=== PATIENT | female | born 1940 | race Caucasian/White ===

== ENCOUNTER 2024-04-23 00:29 | Observation (INO) ==
[2024-04-23 01:11] LABS: Basophils # (auto) 0.05 K/uL (0.00-0.20); Basophils % (auto) 0.5 %; Eosinophils # (auto) 0.02 K/uL (0.00-0.50); Eosinophils % (auto) 0.2 %; Hematocrit (blood only) 44.4 % (37.0-47.0); Hemoglobin 14.5 g/dl (12.0-16.0); Immature Granulocytes # (auto) 0.04 K/uL (0.01-0.20); Immature Granulocytes % (auto) 0.4 %; Lymphocytes # (auto) 1.62 K/uL (1.20-3.40); Lymphocytes % (auto) 16.2 %; Mean Corpuscular Hemoglobin 27.5 pg (25.0-34.0); Mean Corpuscular Hgb Conc 32.7 g/dL (32.0-36.0); Mean Corpuscular Volume 84.3 fL (80.0-100.0); Mean Platelet Volume 9.4 fL (9.4-12.4); Monocytes # (auto) 0.92 K/uL (0.11-0.59); Monocytes % (auto) 9.2 %; Neutrophils # (auto) 7.33 K/uL (1.40-6.50); Neutrophils % (auto) 73.5 %; Platelet Count 196 K/uL (130-400); RDW Coefficient of Variation 13.6 % (11.5-14.5); RDW Standard Deviation 41.9 fL (36.4-46.3); Red Blood Count 5.27 M/uL (4.20-5.40); White Blood Count 9.98 K/ul (4.8-10.8)
[2024-04-23 01:29] LABS: Albumin Globulin Ratio 1.4 (0.9-2); BUN Creatinine Ratio 29.6 (10-20); Bilirubin,Total 0.8 mg/dl (0.2-1.0); Calcium 9.4 mg/dl (8.6-10.3); Creatinine Clr Calc Pharmacy 63.9 ml/min; Globulin 2.8 gm/dl (2.5-4.0); Potassium 3.4 mmol/L (3.5-5.1); Total Protein 6.8 gm/dl (6.0-8.3)
[2024-04-23 01:35] LABS: Troponin I High Sensitivity 7.6 pg/ml (0-14)
[2024-04-23] MEDS: OPTIRAY 320 125ml IV ONE (03:00)
--- NOTE | 2024-04-23 04:30 | CT Scan Report ---
Exam(s): CTA CHEST IV Amt: 94 ml EXAM: CT Angiography Chest With Intravenous Contrast CLINICAL HISTORY: Reason for exam: PE. TECHNIQUE: Axial computed tomographic angiography images of the chest with intravenous contrast. CTDI is 40 mGy and DLP is 847.16 mGy-cm. Automated exposure control was utilized for the study. A dose lowering technique was utilized adhering to the principles of ALARA. MIP reconstructed images were created and reviewed. COMPARISON: No relevant prior studies available. FINDINGS: Pulmonary arteries: Unremarkable. No pulmonary embolism. Aorta: No acute findings. No thoracic aortic aneurysm. Lungs: Unremarkable. No mass. No consolidation. Pleural space: Unremarkable. No significant effusion. No pneumothorax. Heart: Unremarkable. No cardiomegaly. No significant pericardial effusion. No evidence of RV dysfunction. Bones/joints: No acute fracture. No dislocation. Soft tissues: Unremarkable. Lymph nodes: Unremarkable. No enlarged lymph nodes. Adrenals: 2 cm left adrenal nodule with small calcifications. Some of the nodule shows Hounsfield units below 10 and this is likely an adenoma. This does not require follow-up. IMPRESSION: No evidence of pulmonary emboli or acute cardiopulmonary process.. Electronically signed by: Kishan Stahl MD 04/23/24 04:28 AM
--- NOTE | 2024-04-23 05:53 | Emergency Department Note ---
Impression & Plan Chest pain, Acute dyspnea admit to the [facility] ED Provider Note NAME: PAUL PARMAR AGE: 84 SEX: Female INFORMANT: Patient ED PROVIDER(S): Radha Laura DO CHIEF COMPLAINT: Chest pain, shortness of breath, nausea/vomiting/diarrhea PLAN: Disposition: admit to the [facility] MEDICAL DECISION MAKING: this is an 84-year-old female patient who is visiting the area from [place], [place]. Patient had developed some diarrhea earlier this afternoon and then became nauseated. She then noted some labored breathing and some discomfort and pressure along the lateral aspects of her rib cage. She states that it hurts when she inhales and exhales. Patient also describes intermittent episodes of chest pressure associated with pallor. Laboratory studies revealed no leukocytosis or anemia. BUN was elevated at 24 with a creatinine of 0.8 consistent with evidence of dehydration. Glucose was elevated to 166. Troponin was negative. Patient does have an history of DVT in the past and therefore she was sent for a PE study. This was negative. EKG was unremarkable. I remain concerned about the events that occurred this evening with the patient's chest discomfort, episode of labored breathing and pale skin color. I discussed case with the [facility] Divisionist and they will evaluate the patient for further inpatient care and to rule out cardiac event. Care/management discussed with: manager nursing and [facility] Triage Nursing notes: reviewed and agree with them. Vital Signs: reviewed and unremarkable Additional History obtained from: Patient's family is at the bedside Prior/ Outside/ External records reviewed: I did obtain records from the [facility] system in [place], [place] when the patient underwent a knee replacement as well as when she was admitted for pneumonia Differential Diagnosis: pneumonia PE, STEMI, NSTEMI, cardiac dysrhythmia Diagnostics, independently interpreted by me: ECG: Normal sinus rhythm at a rate of [address] segment depression in leads I and aVL. This was compared to an EKG from 2022 in the [facility] system and was unchanged. Cardiac Monitoring: Normal sinus rhythm at a rate of 80 Imaging studies: portable chest x-ray: As per my independent interpretation no acute pulmonary infiltrates or consolidations. There were no opacities CT scan of the chest: As per stat rad HPI: 84 year old Female arrives for evaluation of Chest pain shortness of breath. patient describes having diarrhea earlier in the day and becoming nauseated later today. patient had an developed some pressure as she describes it in both sides of her rib cage. She then became short of breath and pale according to her family. She now describes discomfort with both inhalation and exhalation. She she became more concerned with the chest pain and shortness of breath and woke up her family to bring her here to the hospital. PAST MEDICAL HISTORY: adrenal gland insufficiency, hypertension, hypercholesterolemia, DVT, GERD, glaucoma, traumatic pneumothorax, vertigo, ocular migraine PAST SURGICAL HISTORY: right knee replacement, left hip replacement, hysterectomy SOCIAL HISTORY: Patient lives in [place], [place] and was visiting the area with her family. She does not smoke. HOME MEDICATIONS: Amlodipine, valsartan, Lipitor, Lasix, meloxicam, Nexium, aspirin, calcium ALLERGIES: Coumadin, morphine VITALS: See Below PHYSICAL EXAMINATION: HEENT: Head - normocephalic and atraumatic Pupils are equal, round, and reactive to light. Extraocular eye muscles are intact, and sclera are anicteric. Nose - moist nasal mucosa without discharge. Mouth - moist buccal mucosa. Oropharynx is nonerythematous and there is no tonsillar exudate or edema noted. Neck: Supple; no JVD, nuchal rigidity, cervical lymphadenopathy, or auscultated bruits. Heart: Regular rate and rhythm. There is a normal S1 and S2 with no murmurs, clicks, or gallops appreciated. Lungs: Clear to auscultation bilaterally with no wheezes, rales, or rhonchi. Abdomen: Soft, completely nontender, nondistended, with good bowel sounds. There are no palpable pulsatile masses or hepatosplenomegaly. There is no guarding, rigidity, or rebound noted. Extremities: No evidence of cyanosis, clubbing, or edema. There are easily palpable peripheral pulses. Skin: warm and dry with good turgor and no rashes. Emergency department course: The patient was evaluated in room C-10. A complete history and physical was performed. IV lock was initiated labs were drawn as above. Twelve-lead EKG was obtained as described above. Order was placed for continuous cardiac monitoring. The patient was in a normal sinus rhythm at a rate of 80. Portable chest x-ray was performed as described above. Patient went for CT scan of the chest to rule out PE. I discussed the case with the [facility] Hospitalist and they will evaluate for further inpatient care. Past Med/Surg History Problem List (Updated 04/23/24 @ 06:42 by Alex Maharaj MD) Nausea, vomiting and diarrhea Hyperglycemia GERD without esophagitis Adrenal nodule Presence of IVC filter History of deep vein thrombosis of lower extremity Hyperlipidemia Hypertension Acute dyspnea (Acute) Chest pain (Acute) Medical History (Updated 04/23/24 @ 06:42 by Alex Maharaj MD) Adverse effect of warfarin Full dentures History of pneumonia Acute adrenal insufficiency Glaucoma Vertigo Surgical History (Updated 04/23/24 @ 06:42 by Alex Maharaj MD) History of total left knee replacement (TKR) History of total right knee replacement (TKR) History of total left hip arthroplasty Social History Smoking Status: Never smoker Hx Alcohol Use: No Hx Substance Use: No Preferred Language: Frisian Beliefs That Will Affect Care: None Current Living Situation: Family Feels Safe at Home: Yes Assistive Devices: Cane, Denture - Upper, Denture - Lower and Hearing Aid - Bilateral Allergies Allergies Allergy/AdvReac Type Severity Reaction Status Date / Time morphine AdvReac Nausea Verified 04/23/24 06:47 warfarin [From Coumadin] AdvReac Gastrointestinal Verified 04/23/24 06:47 Upset Home Meds Home Medications Medication Instructions Recorded Confirmed Calcium + D 04/23/24 Lactobacills gasseri-Bifidobac 1 cap PO DAILY 04/23/24 04/23/24 bifidum,longum 1.5 billion cell capsule acetaminophen 650 mg tablet 650 mg PO Q6H PRN Pain 04/23/24 04/23/24 amlodipine 5 mg tablet 5 mg DAILY 04/23/24 04/23/24 aspirin 81 mg tablet 81 mg PO DAILY 04/23/24 04/23/24 atorvastatin 20 mg tablet 20 mg HS 04/23/24 04/23/24 benzonatate 100 mg capsule 100 mg PO TID PRN Cough 04/23/24 04/23/24 cetirizine 10 mg tablet 10 mg PO DAILY PRN Allergy Symptoms 04/23/24 04/23/24 cranberry extract 500 mg capsule 500 mg DAILY 04/23/24 04/23/24 (Cranberry Concentrate) cyclobenzaprine 7.5 mg tablet 7.5 mg DAILY PRN Muscle Spasm 04/23/24 04/23/24 dimenhydrinate 50 mg tablet 50 mg DAILY PRN Motion Sickness 04/23/24 04/23/24 (Dramamine) esomeprazole sodium 40 mg 40 mg DAILY 04/23/24 04/23/24 intravenous solution furosemide 20 mg tablet 20 mg DAILY 04/23/24 04/23/24 meclizine 12.5 mg tablet 12.5 mg PO QID PRN Dizziness 04/23/24 04/23/24 meloxicam 7.5 mg tablet 7.5 mg DAILY 04/23/24 04/23/24 nitrofurantoin macrocrystal 50 mg 50 mg HS 04/23/24 04/23/24 capsule travoprost 0.004 % eye drops 1 drp HS 04/23/24 04/23/24 valsartan 160 mg tablet 160 mg DAILY 04/23/24 04/23/24 Results & Data (ED) Vital Signs Vital Signs - 24 hr 04/23/24 00:12 04/23/24 00:12 04/23/24 00:47 Pulse Rate 75 Pulse Rate from SpO2 Sensor Pulse Rhythm Pulse Strength Respiratory Rate Respiratory Effort / Characteristics Spontaneous Respiratory Depth Shallow Respiratory Pattern Blood Pressure Blood Pressure Mean Blood Pressure Position Pulse Oximetry Oxygen Delivery Method Room Air Sepsis Recent Fever Within 48 Hours Sepsis New/Unexplained Change in Mental Status Sepsis Action Taken by Nursing 04/23/24 00:48 04/23/24 00:58 04/23/24 01:02 Pulse Rate 73 73 Pulse Rate from SpO2 Sensor 73 Pulse Rhythm Regular Pulse Strength Normal Respiratory Rate 18 22 Respiratory Effort / Characteristics Non-Labored Spontaneous Respiratory Depth Normal Respiratory Pattern Regular Blood Pressure 131/68 112/63 Blood Pressure Mean 89 79 Blood Pressure Position Sitting Pulse Oximetry 95 92 92 Oxygen Delivery Method Room Air Room Air Sepsis Recent Fever Within 48 Hours No Sepsis New/Unexplained Change in Mental Status N/A Sepsis Action Taken by Nursing No Action Required 04/23/24 01:03 04/23/24 01:15 04/23/24 01:27 Pulse Rate 74 72 Pulse Rate from SpO2 Sensor 73 Pulse Rhythm Pulse Strength Respiratory Rate 20 16 Respiratory Effort / Characteristics Respiratory Depth Respiratory Pattern Blood Pressure 112/63 150/71 H 135/84 Blood Pressure Mean 79 108 101 Blood Pressure Position Pulse Oximetry 93 Oxygen Delivery Method Sepsis Recent Fever Within 48 Hours Sepsis New/Unexplained Change in Mental Status Sepsis Action Taken by Nursing 04/23/24 01:42 04/23/24 02:00 04/23/24 02:00 Pulse Rate 76 73 Pulse Rate from SpO2 Sensor 76 73 Pulse Rhythm Pulse Strength Respiratory Rate 17 12 Respiratory Effort / Characteristics Respiratory Depth Respiratory Pattern Blood Pressure 125/85 128/65 128/65 Blood Pressure Mean 98 86 79 Blood Pressure Position Pulse Oximetry 92 93 Oxygen Delivery Method Sepsis Recent Fever Within 48 Hours Sepsis New/Unexplained Change in Mental Status Sepsis Action Taken by Nursing 04/23/24 02:12 04/23/24 02:30 04/23/24 03:18 Pulse Rate 73 70 77 Pulse Rate from SpO2 Sensor 73 72 77 Pulse Rhythm Pulse Strength Respiratory Rate 17 19 20 Respiratory Effort / Characteristics Respiratory Depth Respiratory Pattern Blood Pressure 128/85 143/73 H 141/63 H Blood Pressure Mean 99 96 89 Blood Pressure Position Pulse Oximetry 94 94 97 Oxygen Delivery Method Sepsis Recent Fever Within 48 Hours Sepsis New/Unexplained Change in Mental Status Sepsis Action Taken by Nursing 04/23/24 03:30 04/23/24 03:34 04/23/24 03:48 Pulse Rate 68 68 Pulse Rate from SpO2 Sensor 68 68 Pulse Rhythm Pulse Strength Respiratory Rate 21 21 Respiratory Effort / Characteristics Respiratory Depth Respiratory Pattern Blood Pressure 126/69 154/71 H Blood Pressure Mean 88 98 Blood Pressure Position Pulse Oximetry 95 96 94 Oxygen Delivery Method Room Air Sepsis Recent Fever Within 48 Hours Sepsis New/Unexplained Change in Mental Status Sepsis Action Taken by Nursing 04/23/24 03:57 04/23/24 04:46 Pulse Rate 68 71 Pulse Rate from SpO2 Sensor 67 Pulse Rhythm Pulse Strength Respiratory Rate 19 Respiratory Effort / Characteristics Respiratory Depth Respiratory Pattern Blood Pressure 151/80 H Blood Pressure Mean 103 Blood Pressure Position Pulse Oximetry 94 Oxygen Delivery Method Sepsis Recent Fever Within 48 Hours Sepsis New/Unexplained Change in Mental Status Sepsis Action Taken by Nursing Laboratory Data 04/23/24 00:54 04/23/24 00:54 Lab Results 04/23/24 Range/Units 00:54 WBC 9.98 (4.8-10.8) K/ul RBC 5.27 (4.20-5.40) M/uL Hgb 14.5 (12.0-16.0) g/dl Hct 44.4 (37.0-47.0) % MCV 84.3 (80.0-100.0) fL MCH 27.5 (25.0-34.0) pg MCHC 32.7 (32.0-36.0) g/dL RDW Std Deviation 41.9 (36.4-46.3) fL RDW Coeff of Dorothea 13.6 (11.5-14.5) % Plt Count 196 (130-400) K/uL MPV 9.4 (9.4-12.4) fL Immature Gran % (Auto) 0.4 % Neut % (Auto) 73.5 % Lymph % (Auto) 16.2 % [place] % (Auto) 9.2 % Eos % (Auto) 0.2 % Baso % (Auto) 0.5 % Neut # (Auto) 7.33 H (1.40-6.50) K/uL Lymph # (Auto) 1.62 (1.20-3.40) K/uL [place] # (Auto) 0.92 H (0.11-0.59) K/uL Eos # (Auto) 0.02 (0.00-0.50) K/uL Baso # (Auto) 0.05 (0.00-0.20) K/uL Immature Gran # (Auto) 0.04 (0.01-0.20) K/uL Sodium 139 (136-145) mmol/L Potassium 3.4 L (3.5-5.1) mmol/L Chloride 105 (98-107) mmol/L Carbon Dioxide 22 (21-32) mmol/L Anion Gap 12 H (3-11) BUN 24 H (6-23) mg/dl Creatinine 0.81 (0.6-1.2) mg/dl Est Cr Clr Drug Dosing 63.9 ml/min eGFR 71.98 BUN/Creatinine Ratio 29.6 H (10-20) Glucose 166 H (70-99(Fasting)) mg/dl Estimat Average Glucose 140 mg/dl Hemoglobin A1c 6.5 H (4.5-5.6) % Calcium 9.4 (8.6-10.3) mg/dl Magnesium 1.7 (1.7-2.4) mg/dl Total Bilirubin 0.8 (0.2-1.0) mg/dl AST 41 H (13-39) U/L ALT 23 (7-52) U/L Alkaline Phosphatase 109 H (34-104) U/L Troponin I High Sens 7.6 (0-14) pg/ml Total Protein 6.8 (6.0-8.3) gm/dl Albumin 4.0 (3.4-5.0) gm/dl Globulin 2.8 (2.5-4.0) gm/dl Albumin/Globulin Ratio 1.4 (0.9-2) Triglycerides 150 (0-150) mg/dl Cholesterol 117 (0-200) mg/dl LDL Cholesterol, Calc 46 mg/dl VLDL Cholesterol, Calc 30 (0-30) mg/dl HDL Cholesterol 41 mg/dl Cholesterol/HDL Ratio 2.9 (0-5) Lipase 20 (11-82) U/L Administered Medications Discontinued Medications Amlodipine Besylate (Amlodipine Besylate 5 Mg Tab) 5 mg PO DAILY GILDA Stop: 05/23/24 08:59 Last Admin: 04/23/24 10:03 Dose: 5 mg Documented By: AKAU Aspirin (Aspirin 81 Mg Ectab) 81 mg PO DAILY GILDA Stop: 05/23/24 08:59 Last Admin: 04/23/24 10:03 Dose: 81 mg Documented By: AKUA Pantoprazole Sodium (Protonix) 40 mg in 10 mls @ 5 mls/min IV DAILY GILDA Stop: 05/23/24 08:59 Last Admin: 04/23/24 10:04 Dose: 5 mls/min Documented By: AKUA Insulin Aspart (Insulin Aspart Per Unit Charge) 0 units SC ACHS GILDA Stop: 05/23/24 09:26 Last Admin: 04/23/24 09:56 Dose: Not Given Documented By: AMB Ioversol (Optiray 320 125ml) 94 ml IV ONCE ONE Stop: 04/23/24 03:01 Last Admin: 04/23/24 03:00 Dose: 94 ml Documented By: EDER Imaging Data Radiologist's Impression: Chest X-Ray 04/23/24 01:02 XR chest 1V portable CLINICAL HISTORY: Chest pain, nonspecific TECHNIQUE: Single frontal radiograph of the chest was obtained. Comparison: None available at the time of this dictation. FINDINGS: No lines and tubes are seen. Cardiomegaly is noted. The aortic arch is calcified. The lungs are clear. No evidence of pleural effusion or pneumothorax. IMPRESSION: No acute chest disease. ACT 112: Negative or not required by law. Electronically signed by: Noah Tinoco M.D. 04/23/2024 7:51 AM Chest CTA 04/23/24 02:26 Exam(s): CTA CHEST IV Amt: 94 ml EXAM: CT Angiography Chest With Intravenous Contrast CLINICAL HISTORY: Reason for exam: PE. TECHNIQUE: Axial computed tomographic angiography images of the chest with intravenous contrast. CTDI is 40 mGy and DLP is 847.16 mGy-cm. Automated exposure control was utilized for the study. A dose lowering technique was utilized adhering to the principles of ALARA. MIP reconstructed images were created and reviewed. COMPARISON: No relevant prior studies available. FINDINGS: Pulmonary arteries: Unremarkable. No pulmonary embolism. Aorta: No acute findings. No thoracic aortic aneurysm. Lungs: Unremarkable. No mass. No consolidation. Pleural space: Unremarkable. No significant effusion. No pneumothorax. Heart: Unremarkable. No cardiomegaly. No significant pericardial effusion. No evidence of RV dysfunction. Bones/joints: No acute fracture. No dislocation. Soft tissues: Unremarkable. Lymph nodes: Unremarkable. No enlarged lymph nodes. Adrenals: 2 cm left adrenal nodule with small calcifications. Some of the nodule shows Hounsfield units below 10 and this is likely an adenoma. This does not require follow-up. IMPRESSION: No evidence of pulmonary emboli or acute cardiopulmonary process.. Electronically signed by: Kishan Stahl MD 04/23/24 04:28 AM Discharge Plan Visit Data Chief Complaint: Chest Pain Stated Complaint: Chest Pain, SOB, N/V/D ED Provider: Radha Laura Discharge Problem: Chest pain, Acute dyspnea Patient Disposition: Admitted As Inpatient Discharge Instructions Interventions: ED Discharge Assessment Last Done: 04/23/24 08:31
[2024-04-23 06:11] LABS: Chol HDL Ratio 2.9 (0-5); Magnesium 1.7 mg/dl (1.7-2.4)
--- NOTE | 2024-04-23 06:15 | History & Physical Report ---
Date of Service April 23, 2024 Assessment & Plan (1) Chest pain: (2) Acute dyspnea: (3) Nausea, vomiting and diarrhea: (4) Hyperlipidemia: (5) Hypertension: (6) History of deep vein thrombosis of lower extremity: (7) Presence of IVC filter: (8) GERD without esophagitis: (9) Hyperglycemia: Plan Bilateral lower chest pain/acute dyspnea/nausea, vomiting and diarrhea- Patient developed the symptoms shortly after ingesting an orange crush drink, with no one else with similar symptoms She had recently traveled from [facility], and there was concern initially regarding PE. Patient does have a history of IVC filter placement secondary to history of DVT, and CTA PE protocol was negative for PE or infection. Patient had had right lower lobe CAP in December 2022 Additional risk factors included tension, hyperlipidemia, obesity. Initial troponin is negative at 7.6, and EKG was unchanged compared to previous from [facility] in [facility]. The patient will be admitted to telemetry for serial cardiac enzymes, serial EKG's, cardiac rhythm monitoring and a 2-D echocardiogram with Dopplers. Continue amlodipine 5 mg daily, aspirin 81 mg daily Hold for losartan and furosemide for now Nausea, vomiting and diarrhea/GERD without esophagitis- Concerns including but not limited to: Gallbladder disease, ileus, gastritis, esophagitis, gastric ulcer, duodenal ulcer, duodenitis, food poisoning, others Liver tests are normal, however, CT of abdomen and pelvis is being ordered to lucie jrery assess Place on pantoprazole 40 mg IV daily Hyperglycemia associated with diabetes mellitus type 2- Patient chart review shows hemoglobin A1c of 6.5 past 2 years Glucose [address] on Accu-Cheks with NovoLog SSI Check hemoglobin A1c Hyperlipidemia- Continue atorvastatin, check a fasting lipid panel Adverse drug reactions: While on warfarin status post right TKA in 2004, patient had adrenal hemorrhage, leading to acute adrenal insufficiency, but has not required stress dosing While on Xarelto in December 2023, status post left TKA, patient had a significant hematoma Patient continues on aspirin 81 mg daily as primary antiplatelet treatment, and should have avoidance of anticoagulants Patient has history of IVC filter placement History of Present Illness Chief Complaint: The patient presents to the emergency department plaint of acute onset of bilateral lower rib cage pain, nausea, vomiting, and a single diarrheal episode. Primary Care Provider: NO PCP The patient is a 84-year-old female with a past medical history including hypertension, hyperlipidemia, GERD without esophagitis, hyperglycemia, DVT right lower extremity status post right TKA, IVC filter placement, glaucoma, acute adrenal insufficiency secondary to hemorrhaging while on warfarin, ocular migraine, and vertigo. She traveled from [facility] to [facility] yesterday, was at a camp with her family, and began to develop symptoms as noted. She was brought to the emergency department by EMS, and underwent workup including laboratories chest x-ray and CT angiography PE protocol. Allergies Allergy/AdvReac Type Severity Reaction Status Date / Time morphine AdvReac Nausea Verified 04/23/24 06:47 warfarin [From Coumadin] AdvReac Gastrointestinal Verified 04/23/24 06:47 Upset Home Medications Medication Instructions Recorded Confirmed Type Calcium + D 04/23/24 History Lactobacills gasseri-Bifidobac 1 cap PO DAILY 04/23/24 04/23/24 History bifidum,longum 1.5 billion cell capsule acetaminophen 650 mg tablet 650 mg PO Q6H PRN Pain 04/23/24 04/23/24 History amlodipine 5 mg tablet 5 mg DAILY 04/23/24 04/23/24 History aspirin 81 mg tablet 81 mg PO DAILY 04/23/24 04/23/24 History atorvastatin 20 mg tablet 20 mg HS 04/23/24 04/23/24 History benzonatate 100 mg capsule 100 mg PO TID PRN Cough 04/23/24 04/23/24 History cetirizine 10 mg tablet 10 mg PO DAILY PRN Allergy Symptoms 04/23/24 04/23/24 History cranberry extract 500 mg capsule 500 mg DAILY 04/23/24 04/23/24 History (Cranberry Concentrate) cyclobenzaprine 7.5 mg tablet 7.5 mg DAILY PRN Muscle Spasm 04/23/24 04/23/24 History dimenhydrinate 50 mg tablet 50 mg DAILY PRN Motion Sickness 04/23/24 04/23/24 History (Dramamine) esomeprazole sodium 40 mg 40 mg DAILY 04/23/24 04/23/24 History intravenous solution furosemide 20 mg tablet 20 mg DAILY 04/23/24 04/23/24 History meclizine 12.5 mg tablet 12.5 mg PO QID PRN Dizziness 04/23/24 04/23/24 History meloxicam 7.5 mg tablet 7.5 mg DAILY 04/23/24 04/23/24 History nitrofurantoin macrocrystal 50 mg 50 mg HS 04/23/24 04/23/24 History capsule travoprost 0.004 % eye drops 1 drp HS 04/23/24 04/23/24 History valsartan 160 mg tablet 160 mg DAILY 04/23/24 04/23/24 History Past Med/Surg History Problem List (Updated 04/23/24 @ 06:42 by Alex Maharaj MD) Nausea, vomiting and diarrhea Hyperglycemia GERD without esophagitis Adrenal nodule Presence of IVC filter History of deep vein thrombosis of lower extremity Hyperlipidemia Hypertension Acute dyspnea (Acute) Chest pain (Acute) Medical History (Updated 04/23/24 @ 06:42 by Alex Maharaj MD) Adverse effect of warfarin Full dentures History of pneumonia Acute adrenal insufficiency Glaucoma Vertigo Surgical History (Updated 04/23/24 @ 06:42 by Alex Maharaj MD) History of total left knee replacement (TKR) History of total right knee replacement (TKR) History of total left hip arthroplasty Social History Smoking Status: Never smoker Preferred Language: Latvian Feels Safe at Home: Yes Review of Systems Review of Systems: The patient denies palpitations, cough, lower extremity swelling, sore throat, fevers, chills, sweats, blood in urine or stool, dysuria, urinary frequency or urgency, lightheadedness, dizziness, headache, memory loss, loss of consciousness, rash, abnormal bruising or bleeding, imbalance, focal weakness, numbness or tingling in arms or legs, generalized arthralgias or myalgias, back or neck pain, or night sweats. The review of systems is otherwise negative other than for that already noted above, and at least 10 systems have been reviewed. Physical Exam Physical Exam: The patient is awake, alert and oriented 3, well developed and well nourished, normocephalic and atraumatic, lying in bed and in no acute distress. HEENT--PERRL, EOMI, mucous membranes and oropharynx mildly dry. Neck--supple. No JVD. No bruits. Thyroid normal, trachea midline, no adenopathy. Heart--normal S1 and S2. No murmurs, rubs or gallops. Lungs--clear bilaterally, no respiratory distress, no accessory muscle use. Abdomen--normal bowel sounds and soft. Nontender. Nondistended Extremities--No edema. Dermatologic--normal skin turgor, normal color, no abnormal lymph nodes, no rash. Neurologic--cranial nerves II through XII grossly intact. Rheumatologic--normal range of motion. Psychiatric--normal affect. Results & Data Results & Data Vital Signs (Past 12 Hours) Vital Signs Pulse Resp BP Pulse Ox O2 Del Method 04/23/24 04:46 71 04/23/24 03:57 68 19 151/80 H 94 04/23/24 03:48 68 21 154/71 H 94 04/23/24 03:34 96 Room Air 04/23/24 03:30 68 21 126/69 95 04/23/24 03:18 77 20 141/63 H 97 04/23/24 02:30 70 19 143/73 H 94 04/23/24 02:12 73 17 128/85 94 04/23/24 02:00 128/65 04/23/24 02:00 73 12 128/65 93 04/23/24 01:42 76 17 125/85 92 04/23/24 01:27 72 16 135/84 93 04/23/24 01:15 150/71 H 04/23/24 01:03 74 20 112/63 04/23/24 01:02 92 Room Air 04/23/24 00:58 73 22 112/63 92 Room Air 04/23/24 00:48 73 18 131/68 95 04/23/24 00:47 75 04/23/24 00:12 Room Air Laboratory Results Laboratory Results WBC 9.98 K/ul (4.8-10.8) 04/23/24 00:54 RBC 5.27 M/uL (4.20-5.40) 04/23/24 00:54 Hgb 14.5 g/dl (12.0-16.0) 04/23/24 00:54 Hct 44.4 % (37.0-47.0) 04/23/24 00:54 MCV 84.3 fL (80.0-100.0) 04/23/24 00:54 MCH 27.5 pg (25.0-34.0) 04/23/24 00:54 MCHC 32.7 g/dL (32.0-36.0) 04/23/24 00:54 RDW Std Deviation 41.9 fL (36.4-46.3) 04/23/24 00:54 RDW Coeff of Dorothea 13.6 % (11.5-14.5) 04/23/24 00:54 Plt Count 196 K/uL (130-400) 04/23/24 00:54 MPV 9.4 fL (9.4-12.4) 04/23/24 00:54 Immature Gran % (Auto) 0.4 % 04/23/24 00:54 Neut % (Auto) 73.5 % 04/23/24 00:54 Lymph % (Auto) 16.2 % 04/23/24 00:54 Dare % (Auto) 9.2 % 04/23/24 00:54 Eos % (Auto) 0.2 % 04/23/24 00:54 Baso % (Auto) 0.5 % 04/23/24 00:54 Neut # (Auto) 7.33 K/uL (1.40-6.50) H 04/23/24 00:54 Lymph # (Auto) 1.62 K/uL (1.20-3.40) 04/23/24 00:54 Dare # (Auto) 0.92 K/uL (0.11-0.59) H 04/23/24 00:54 Eos # (Auto) 0.02 K/uL (0.00-0.50) 04/23/24 00:54 Baso # (Auto) 0.05 K/uL (0.00-0.20) 04/23/24 00:54 Immature Gran # (Auto) 0.04 K/uL (0.01-0.20) 04/23/24 00:54 Sodium 139 mmol/L (136-145) 04/23/24 00:54 Potassium 3.4 mmol/L (3.5-5.1) L 04/23/24 00:54 Chloride 105 mmol/L (98-107) 04/23/24 00:54 Carbon Dioxide 22 mmol/L (21-32) 04/23/24 00:54 Anion Gap 12 (3-11) H 04/23/24 00:54 BUN 24 mg/dl (6-23) H 04/23/24 00:54 Creatinine 0.81 mg/dl (0.6-1.2) 04/23/24 00:54 Est Cr Clr Drug Dosing 63.9 ml/min 04/23/24 00:54 eGFR 71.98 04/23/24 00:54 BUN/Creatinine Ratio 29.6 (10-20) H 04/23/24 00:54 Glucose 166 mg/dl (70-99(Fasting)) H 04/23/24 00:54 Calcium 9.4 mg/dl (8.6-10.3) 04/23/24 00:54 Magnesium 1.7 mg/dl (1.7-2.4) 04/23/24 00:54 Total Bilirubin 0.8 mg/dl (0.2-1.0) 04/23/24 00:54 AST 41 U/L (13-39) H 04/23/24 00:54 ALT 23 U/L (7-52) 04/23/24 00:54 Alkaline Phosphatase 109 U/L (34-104) H 04/23/24 00:54 Troponin I High Sens 7.6 pg/ml (0-14) 04/23/24 00:54 Total Protein 6.8 gm/dl (6.0-8.3) 04/23/24 00:54 Albumin 4.0 gm/dl (3.4-5.0) 04/23/24 00:54 Globulin 2.8 gm/dl (2.5-4.0) 04/23/24 00:54 Albumin/Globulin Ratio 1.4 (0.9-2) 04/23/24 00:54 Triglycerides 150 mg/dl (0-150) 04/23/24 00:54 Cholesterol 117 mg/dl (0-200) 04/23/24 00:54 LDL Cholesterol, Calc 46 mg/dl 04/23/24 00:54 VLDL Cholesterol, Calc 30 mg/dl (0-30) 04/23/24 00:54 HDL Cholesterol 41 mg/dl 04/23/24 00:54 Cholesterol/HDL Ratio 2.9 (0-5) 04/23/24 00:54 Lipase 20 U/L (11-82) 04/23/24 00:54 Impressions Chest CTA 04/23/24 02:26 Exam(s): CTA CHEST IV Amt: 94 ml EXAM: CT Angiography Chest With Intravenous Contrast CLINICAL HISTORY: Reason for exam: PE. TECHNIQUE: Axial computed tomographic angiography images of the chest with intravenous contrast. CTDI is 40 mGy and DLP is 847.16 mGy-cm. Automated exposure control was utilized for the study. A dose lowering technique was utilized adhering to the principles of ALARA. MIP reconstructed images were created and reviewed. COMPARISON: No relevant prior studies available. FINDINGS: Pulmonary arteries: Unremarkable. No pulmonary embolism. Aorta: No acute findings. No thoracic aortic aneurysm. Lungs: Unremarkable. No mass. No consolidation. Pleural space: Unremarkable. No significant effusion. No pneumothorax. Heart: Unremarkable. No cardiomegaly. No significant pericardial effusion. No evidence of RV dysfunction. Bones/joints: No acute fracture. No dislocation. Soft tissues: Unremarkable. Lymph nodes: Unremarkable. No enlarged lymph nodes. Adrenals: 2 cm left adrenal nodule with small calcifications. Some of the nodule shows Hounsfield units below 10 and this is likely an adenoma. This does not require follow-up. IMPRESSION: No evidence of pulmonary emboli or acute cardiopulmonary process.. Electronically signed by: Kishan Stahl MD 04/23/24 04:28 AM Code Status & VTE Plan Code Status Full code VTE Prophylaxis Plan VTE Prophylaxis will be ordered: Yes PG Care Time/CCT Total # of Minutes Spent Total Time Spent with Patient: Total time spent is greater than 50% in coordination of care (as documented) at patient's floor/unit and/or counseling patient: Coding Level of Care Code 98318 INT INP/OBS CARE 3/75MIN Diagnoses Chest pain R07.9 Acute dyspnea R06.00 Nausea, vomiting and diarrhea R11.2; R19.7 Hyperlipidemia E78.5 Hypertension I10 History of deep vein thrombosis of lower extremity Z86.718 Presence of IVC filter Z95.828 GERD without esophagitis K21.9 Hyperglycemia R73.9
[2024-04-23] MEDS ORDERED: Patient's ALLERGY Info needs ENTERED STA (06:26)
[2024-04-23] MEDS ORDERED: NSS + 20MEQ KCL 20 MEQ/1,000 ML BAG IV STA (06:49)
[2024-04-23 07:37] LABS: Estimated Average Glucose 140 mg/dl; Hemoglobin A1C 6.5 % (4.5-5.6)
--- NOTE | 2024-04-23 07:52 | XRay Report ---
XR chest 1V portable CLINICAL HISTORY: Chest pain, nonspecific TECHNIQUE: Single frontal radiograph of the chest was obtained. Comparison: None available at the time of this dictation. FINDINGS: No lines and tubes are seen. Cardiomegaly is noted. The aortic arch is calcified. The lungs are clear . No evidence of pleural effusion or pneumothorax. IMPRESSION: No acute chest disease. ACT 112: Negative or not required by law. Electronically signed by: Noah Tinoco M.D. 04/23/2024 7:51 AM
--- NOTE | 2024-04-23 09:25 | CT Scan Report ---
CT abd pelvis wo con CLINICAL HISTORY: abd pain, N/V, diarrhea TECHNIQUE: Helical axial images of the abdomen and pelvis were obtained. Automated dose lowering tech niques and/or adjustment according to patient size were utilized for this exam. This exam was perfor med without intravenous contrast. CT DOSE: 1396.08 mGy.cm COMPARISON: None available at the time of this dictation. FINDINGS: Lower chest: For findings above the diaphragm, please see CT chest performed same day. Liver: Unremarkable. No focal lesions are seen. Gallbladder and biliary tree: Cholelithiasis is seen without evidence of cholecystitis. No intra- or extrahepatic biliary ductal dilation. Pancreas: Fatty replacement of the pancreas is seen. Spleen: Unremarkable. Adrenals: Lipid rich adrenal adenomas are seen. Kidneys and ureters: Unremarkable. Bladder: Unremarkable. Reproductive organs: Patient is status post hysterectomy. Bowel: Diverticulosis is seen without diverticulitis. The appendix is normal. There is a small hiatal hernia. Lymph nodes Retroperitoneal: Unremarkable. Pelvic: Unremarkable. Mesenteric: Unremarkable. Peritoneum: Normal. Vessels: Atherosclerotic calcifications are seen. IVC filter is seen. Abdominal wall: Unremarkable. Bones: Left hip arthroplasty is seen. Degenerative changes are seen in the spine. Mild compression de formity in L2 appears chronic. IMPRESSION: 1. No acute abnormalities to explain nausea, vomiting, and diarrhea. 2. Cholelithiasis without cholecystitis. 3. Diverticulosis without diverticulitis. ACT 112: Negative or not required by law. Electronically signed by: Noah Tinoco M.D. 04/23/2024 9:24 AM5
[2024-04-23] MEDS ORDERED: DEXTROSE 50% 50 ML SYRINGE IV PRN (09:27)
[2024-04-23] MEDS ORDERED: ACETAMINOPHEN 325 MG TAB PO PRN (09:27)
[2024-04-23] MEDS ORDERED: GLUCOSE 40% GEL 15 GM TUBE PO PRN (09:27)
[2024-04-23] MEDS ORDERED: GLUCOSE 10 TAB/TUBE PO PRN (09:27)
[2024-04-23] MEDS ORDERED: CARBOHYDRATES FOR HYPOGLYCEMIA PO PRN (09:27)
[2024-04-23] MEDS ORDERED: GLUCAGON FOR INJ 1 MG VIAL SQ PRN (09:27)
[2024-04-23] MEDS ORDERED: ONDANSETRON INJ 2 MG/ML 2 ML VIAL IV PRN (09:27)
[2024-04-23] MEDS: INSULIN ASPART PER UNIT CHARGE SC SCH (09:56)
[2024-04-23] MEDS: amLODIPine BESYLATE 5 MG TAB PO SCH (10:03)
[2024-04-23] MEDS: ASPIRIN 81 MG ECTAB PO SCH (10:03)
[2024-04-23] MEDS: PANTOprazole 40 MG/10 ML SYR IV SCH (10:04)
--- NOTE | 2024-04-23 15:33 | XCELERA ---
[id number]
[2024-04-23] MEDS ORDERED: ATORVASTATIN 20 MG TAB PO SCH (21:00)
[2024-04-23] MEDS ORDERED: TRAVOPROST Z 0.004% OPH SOLN 2.5 ML BTL OPB SCH (21:00)
--- NOTE | 2024-04-24 11:40 | Discharge Summary ---
Discharge Summary Date of Service April 23, 2024 Principal Dx & Hospital Course #1 = Principal Diagnosis (1) Chest pain: (2) Acute dyspnea: (3) Nausea, vomiting and diarrhea: (4) Hyperlipidemia: (5) Hypertension: (6) History of deep vein thrombosis of lower extremity: (7) Presence of IVC filter: (8) GERD without esophagitis: (9) Hyperglycemia: Plan Bilateral lower chest pain/acute dyspnea/nausea, vomiting and diarrhea- Patient developed the symptoms shortly after ingesting an orange crush drink, with no one else with similar symptoms She had recently traveled from [place], and there was concern initially regarding PE. Patient does have a history of IVC filter placement secondary to history of DVT, and CTA PE protocol was negative for PE or infection. Patient had had right lower lobe CAP in December 2022 Additional risk factors included tension, hyperlipidemia, obesity. Initial troponin is negative at 7.6, and EKG was unchanged compared to previous from [facility] in [place]. Echo was negative. Continue amlodipine 5 mg daily, aspirin 81 mg daily Later on 04/23 symptoms resolved. resume all meds. Family will schedule followup with patient's PCP at home. Nausea, vomiting and diarrhea/GERD without esophagitis- Concerns including but not limited to: Gallbladder disease, ileus, gastritis, esophagitis, gastric ulcer, duodenal ulcer, duodenitis, food poisoning, others Liver tests are normal, however, CT of abdomen and pelvis was negative. Hyperglycemia associated with diabetes mellitus type 2- Patient chart review shows hemoglobin A1c of 6.5 past 2 years Glucose [address] on Accu-Cheks with NovoLog SSI Hyperlipidemia- Continue atorvastatin, check a fasting lipid panel Adverse drug reactions: While on warfarin status post right TKA in 2004, patient had adrenal hemorrhage, leading to acute adrenal insufficiency, but has not required stress dosing While on Xarelto in December 2023, status post left TKA, patient had a significant hematoma Patient continues on aspirin 81 mg daily as primary antiplatelet treatment, and should have avoidance of anticoagulants Patient has history of IVC filter placement Admission HPI Per Admitting Provider The patient is a 84-year-old female with a past medical history including hypertension, hyperlipidemia, GERD without esophagitis, hyperglycemia, DVT right lower extremity status post right TKA, IVC filter placement, glaucoma, acute adrenal insufficiency secondary to hemorrhaging while on warfarin, ocular migraine, and vertigo. She traveled from [facility] to [facility] yesterday, was at a camp with her family, and began to develop symptoms as noted. She was brought to the emergency department by EMS, and underwent workup including laboratories chest x-ray and CT angiography PE protocol. Discharge Exam The patient is awake, alert and oriented 3, lying in bed and in no acute distress. HEENT--PERRL, EOMI, mucous membranes and oropharynx mildly dry. Neck--supple. No JVD. No bruits. Thyroid normal, trachea midline, no adenopathy. Heart--normal S1 and S2. No murmurs, rubs or gallops. Lungs--clear bilaterally, no respiratory distress, no accessory muscle use. Abdomen--normal bowel sounds and soft. Nontender. Nondistended Extremities--No edema. Dermatologic--normal skin turgor, normal color, no abnormal lymph nodes, no rash. Neurologic--cranial nerves II through XII grossly intact. Rheumatologic--normal range of motion. Psychiatric--normal affect Discharge Plan Discharge Items Patient Disposition: Home - Self-Care Reason For Visit: CHEST PAIN,SOB Discharge Diagnosis: chest pain Activity: Resume your previous activity Non-emergency contact: Primary Care Provider Call non-emergency contact if: you have any medication questions Follow-up/Referrals: PCP,NO [Primary Care Provider] - Diet: Carb Consistent or DM2 and Heart Healthy Addtl Attending Provider Instructions: Recommend seeing your PCP in about 1 week Pending Studies at Discharge: No Stand-Alone Forms: My [facility] [employer], Smoking Cessation Medications and DC Order Prescriptions: Continued nitrofurantoin macrocrystal 50 mg capsule 50 mg HS atorvastatin 20 mg tablet 20 mg HS cetirizine 10 mg Tablet 10 mg PO DAILY PRN (Reason: Allergy Symptoms) travoprost 0.004 % drops 1 drp HS meclizine 12.5 mg Tablet 12.5 mg PO QID PRN (Reason: Dizziness) amlodipine 5 mg tablet 5 mg DAILY acetaminophen 650 mg Tablet 650 mg PO Q6H PRN (Reason: Pain) dimenhydrinate [Dramamine] 50 mg Tablet 50 mg DAILY PRN (Reason: Motion Sickness) meloxicam 7.5 mg tablet 7.5 mg DAILY benzonatate 100 mg capsule 100 mg PO TID PRN (Reason: Cough) aspirin 81 mg Tablet 81 mg PO DAILY furosemide 20 mg tablet 20 mg DAILY valsartan 160 mg tablet 160 mg DAILY cranberry extract [Cranberry Concentrate] 500 mg Capsule 500 mg DAILY esomeprazole sodium 40 mg Recon Soln 40 mg DAILY cyclobenzaprine 7.5 mg Tablet 7.5 mg DAILY PRN (Reason: Muscle Spasm) L. gasseri-B. bifidum-B longum 1.5 billion cell Capsule 1 cap PO DAILY Calcium + D Discharge Orders: Discharge Order (Routine); Ordered 04/23/24 Ordered By: Domingo Tim Admission Data Admit Date/Time: 04/23/24 05:54 Attending Provider: Domingo Tim Admit Provider: Alex Maharaj Primary Care Provider: PCP,NO Other Providers: Alex Maharaj Other Interventions: Discharge Summary Assessment (RN) Last Done: 04/23/24 14:25 Hospital Stay Data Consultations 04/23/24 05:01 ED Decision to Admit Stat Diagnostic Imagining Performed 04/23/24 02:26 CT angio chest PE protocol Stat 04/23/24 06:16 CT Abdomen and Pelvis [CT abd pelvis wo con] Stat Pending Results Patient Have Any Pending Studies at Discharge: No Discharge Instructions Given to Patient (Per Discharging Provider) Recommend seeing your PCP in about 1 week Total Time Total Time Spent Total Time Spent (In Minutes): 32 Coding Level of Care Code 11704 INP/OBS DISCH >30 MIN Diagnoses Chest pain R07.9 Acute dyspnea R06.00 Nausea, vomiting and diarrhea R11.2; R19.7 Hyperlipidemia E78.5 Hypertension I10 History of deep vein thrombosis of lower extremity Z86.718 Presence of IVC filter Z95.828 GERD without esophagitis K21.9 Hyperglycemia R73.9
--- NOTE | 2024-04-27 05:58 | Electrocardiogram Report ---
Test Reason : Blood Pressure : */* mmHG Vent. Rate : 82 BPM Atrial Rate : 82 BPM P-R Int : 154 ms QRS Dur : 94 ms QT Int : 408 ms P-R-T Axes : 45 -4 71 degrees QTcB Int : 477 ms Normal sinus rhythm Nonspecific ST and T wave abnormality Abnormal ECG No previous ECGs available Confirmed by Alonzo Webb ([id number]) on 04/27/2024 5:57:52 AM Also confirmed by Alonzo Webb ([id number]) on 04/27/2024 5:58:26 AM Referred By: Confirmed By: Alonzo Webb
== END 2024-04-23 14:37 | disposition home or self-care (01) ==
LOC: SUATTDRO → 4W 00:29 → ED 00:29 → SUATTDRO 05:54 → 4W 08:31
DX: Z95.828 Presence of other vascular implants and grafts; R06.00 Dyspnea, unspecified; R73.9 Hyperglycemia, unspecified; R19.7 Diarrhea, unspecified; K21.9 Gastro-esophageal reflux disease without esophagitis; Z88.8 Allergy status to other drugs, medicaments and biological substances; Z88.5 Allergy status to narcotic agent; R07.9 Chest pain, unspecified; R11.2 Nausea with vomiting, unspecified; E78.5 Hyperlipidemia, unspecified; Z86.718 Personal history of other venous thrombosis and embolism; Z79.899 Other long term (current) drug therapy; I10 Essential (primary) hypertension; Z79.82 Long term (current) use of aspirin